=== PATIENT | male | born 1945 | race Caucasian/White ===

== ENCOUNTER 2018-12-25 11:19 | Inpatient (IN) | payer OTHER ==
[~2018-12-25] VITALS: Ht 177.8 cm; Wt 89.9 kg
[2018-12-25 13:00] VITALS: BP 130/79
--- NOTE | 2018-12-25 18:07 | NUR ---
PT A DIRECT ADMIT FROM DR. ESPINAL'S OFFICE. ADMISSION HX AND ASSESSMENT COMPLETED. PT ALERT AND ORIENTED. VSS. AFIB ON THE MONITOR. ON AMIODARON DRIP. SEEN BY DR. ESPINAL. ORDERS NOTED. PLAN IS TO HAVE ELECTRICAL CARDIOVERSION IN THE MORNING. NO CARDIAC DISTRESS NOTED. WILL CONTINUE TO MONITOR.
[2018-12-25] MEDS ORDERED: LOVASTATIN 20 M20 MG PO (18:27)
[2018-12-25] MEDS ORDERED: LOPRESSOR50 PO (18:28)
[2018-12-25] MEDS ORDERED: CENTRUM SILVER1 EAC4 PO (18:29)
[2018-12-25] MEDS ORDERED: ELIQUIS5 MG PO (18:29)
[2018-12-25 19:58] VITALS: BP 131/81
[2018-12-26 00:55] VITALS: BP 131/71
--- NOTE | 2018-12-26 03:21 | NUR ---
PT ALERT AND ORIENTED. DENIES CHEST PAIN SOA, NAUSEA OR VOMITING. PT ON AMIODARONE DRIP AT 16.7ML/HR. AD SUREKHA WITH AMBULATION. VITAL SIGNS STABLE. PT WAS AFIB ON MONITOR BUT CONVERTED TO SR/SA AT ABOUT 0030. ALL OTHER ASSESSMENTS DOCUMENTED. NO OTHER COMPLAINS AT THIS TIME. WILL CONTINUE TO FOLLOW PLAN OF CARE.
[2018-12-26 04:01] LABS: CREATININE 1.2 mg/dL (0.7-1.3); POTASSIUM 4.2 mmol/L (3.5-5.1)
[2018-12-26 04:34] LABS: HEMATOCRIT 47.8 % (42.0-52.0); HEMOGLOBIN 16.1 gm/dL (14.0-18.0); MCH 29.8 pg (26.0-34.0); MCHC 33.6 g/dL (28.0-37.0); MCV 88.7 fL (80.0-100.0); RBC 5.38 mil/uL (4.50-6.00); RDW 13.7 % (10.5-14.5); WBC 8.1 thou/uL (4.0-11.0)
[2018-12-26 04:50] VITALS: BP 116/78
[2018-12-26 08:12] VITALS: BP 146/84
[2018-12-26 11:03] VITALS: BP 134/76
[2018-12-26 14:37] VITALS: BP 134/76
--- NOTE | 2018-12-26 15:05 | NUR ---
ASSESSMENT DOCUMENTED. PT ALERT AND ORIENTED. VSS. DENIED HAVING PAIN OR DISCOMFORT. HAD CARDIOVERSION MID MORNING. SR ON TELI. NO CARDIAC DISTRESS NOTED. ORDERS GIVEN TO DISCHARGE PT TO HOME. DISCHARGE INSTRUCTIONS GIVEN TO PT. PT VERBERLIZE UNDERSTANDING. PT LEFT THE FACILITY ACOMPANIED BY THE .
--- NOTE | 2018-12-27 07:47 | EKG ---
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1945 Requested By: Fiona Sorto Order Number: [id number] MD: Ruddy Ramirez Measurements Intervals [place] Rate: 117 P: ME: QRS: 49 QRSD: 89 T: 31 QT: 357 QTc: 498 Interpretive Statements Atrial fibrillation Low voltage, extremity leads Borderline ST depression, diffuse leads No previous ECG available for comparison Electronically Signed On 12-27-2018 7:47:25 CDT by Ruddy Ramirez [email or web address] ��������������������������������������������� <ELECTRONICALLY SIGNED> ���������������������������������������� By: Ruddy Ramirez MD, [facility] ��������������������������������������������� 12/27/18 0747 6 6 Ruddy Ramirez MD, [facility] /EPI
--- NOTE | 2018-12-31 13:57 | D ---
[facility] [place] [address] DISCHARGE SUMMARY Name: VIVIAN DAWSON Room #: 216-P [facility] IN M.R.#: [id number] Admission: 12/25/18 ������������������ Attend Phys: Dm Blackburn Discharge: 12/26/18 ������������������ Date of : 41 Report #: [id number] THIS REPORT FOR: //name// CC: Dm Christina DATE OF SERVICE: 12/26/2018 ADMITTING DIAGNOSIS: Symptomatic paroxysmal atrial fibrillation. DISCHARGE DIAGNOSES: Paroxysmal atrial fibrillation. PROCEDURE PERFORMED: 1. Electrical cardioversion. 2. Supervision of conscious sedation. DISCHARGE MEDICATIONS: Home meds except for: A. Amiodarone 200 mg p.o. t.i.d. for a week, b.i.d. for a week, then q.a.m. B. No metoprolol. BRIEF CLINICAL HISTORY: See history and physical in chart. HOSPITAL COURSE: The patient was admitted to the hospital and initiated on IV amiodarone protocol. This did not convert the patient and subsequently underwent uncomplicated cardioversion electively with a biphasic 200 joule synchronized shock, which converted him to sinus bradycardia. Post-procedure, he ambulated well without any significant difficulties or abnormalities and is being discharged in stable and improved condition. ��������������������������������������������� <ELECTRONICALLY SIGNED> ���������������������������������������� By: Dm Blackburn MD ��������������������������������������������� 12/31/18 1357 1309 1929 Dm Blackburn MD /syd
== END 2018-12-26 15:02 | disposition home or self-care (01) | DRG 310 ==
LOC: 2N 11:19
PROVIDERS: Nurse Practitioner Gerontology; ADMIT Internal Medicine
PROC: 5A2204Z Restoration of Cardiac Rhythm, Single (ICD-10-PCS; principal; 2018-12-26)
DX: I48.0 Paroxysmal atrial fibrillation (principal); I10 Essential (primary) hypertension; E78.5 Hyperlipidemia, unspecified; Z79.899 Other long term (current) drug therapy
CPT/HCPCS: 10081

== ENCOUNTER 2019-02-09 19:56 | Emergency (ER) | payer OTHER ==
[~2019-02-09] VITALS: Ht 177.8 cm; Wt 90.3 kg
[~2019-02-09 19:56] MED LIST: CENTRUM SILVER1 EAC4 PO; ELIQUIS5 MG PO; LOPRESSOR50 PO; LOVASTATIN 20 M20 MG PO
[2019-02-09] MEDS ORDERED: PACERONE 200 M200 M1 PO (20:13)
[2019-02-09 20:44] LABS: ABSOLUTE NEUTROPHILS 5.8 thou/uL (1.4-8.2); BASOPHILS 0.7 % (0.0-2.0); EOSINOPHILS 4.9 % (0.0-3.0); HEMATOCRIT 45.5 % (42.0-52.0); HEMOGLOBIN 15.4 gm/dL (14.0-18.0); LYMPHOCYTES 17.4 % (24.0-44.0); MCH 30.4 pg (26.0-34.0); MCHC 33.9 g/dL (28.0-37.0); MCV 89.7 fL (80.0-100.0); MONOCYTES 10.3 % (1.0-8.0); PLATELET COUNT 187 thou/uL (150-400); POLYS 66.7 % (36.0-66.0); RBC 5.08 mil/uL (4.50-6.00); RDW 13.7 % (10.5-14.5); WBC 8.7 thou/uL (4.0-11.0)
[2019-02-09 20:57] LABS: CALCIUM 9.2 mg/dL (8.5-10.1); CREATININE 1.3 mg/dL (0.7-1.3); POTASSIUM 4.2 mmol/L (3.5-5.1)
[2019-02-09] MEDS ORDERED: KEFLEX500 M1 PO (21:52)
[2019-02-09] MEDS ORDERED: BACTRIM DS TAB1 EACH PO (21:52)
[2019-02-09 22:03] VITALS: BP 150/71
== END 2019-02-09 22:05 | disposition home or self-care (01) ==
LOC: ER 19:56
PROVIDERS: Emergency Medicine
DX: L03.116 Cellulitis of left lower limb (principal); L03.115 Cellulitis of right lower limb; I48.91 Unspecified atrial fibrillation; E78.5 Hyperlipidemia, unspecified; Z87.891 Personal history of nicotine dependence

== ENCOUNTER → 2020-01-28 | Outpatient (CLI) | payer OTHER ==
[~2020-01-28] MED LIST changes: +BACTRIM DS TAB1 EACH PO; +KEFLEX500 M1 PO; +PACERONE 200 M200 M1 PO
== END ==
LOC: SJCVC 10:29
PROVIDERS: ATTEND Internal Medicine
DX: I48.0 Paroxysmal atrial fibrillation (principal); R00.1 Bradycardia, unspecified; I10 Essential (primary) hypertension; E78.5 Hyperlipidemia, unspecified; K21.9 Gastro-esophageal reflux disease without esophagitis; J44.9 Chronic obstructive pulmonary disease, unspecified; I25.10 Atherosclerotic heart disease of native coronary artery without angina pectoris; Z79.899 Other long term (current) drug therapy; Z87.891 Personal history of nicotine dependence

== ENCOUNTER 2021-01-20 11:37 | Inpatient (IN) | payer OTHER ==
[~2021-01-20] VITALS: Ht 177.8 cm; Wt 90.7 kg
[2021-01-20 11:37] VITALS: BP 143/83
[2021-01-20 12:05] LABS: ABSOLUTE NEUTROPHILS 8.3 thou/uL (1.4-8.2); BASOPHILS 0.5 % (0.0-2.0); EOSINOPHILS 0.1 % (0.0-3.0); HEMATOCRIT 43.5 % (42.0-52.0); HEMOGLOBIN 14.7 gm/dL (14.0-18.0); LYMPHOCYTES 13.1 % (24.0-44.0); MCH 30.2 pg (26.0-34.0); MCHC 33.7 g/dL (28.0-37.0); MCV 89.7 fL (80.0-100.0); MONOCYTES 13.6 % (1.0-8.0); PLATELET COUNT 202 thou/uL (150-400); POLYS 72.7 % (36.0-66.0); RBC 4.85 mil/uL (4.50-6.00); RDW 13.4 % (10.5-14.5); WBC 11.5 thou/uL (4.0-11.0)
[2021-01-20] MEDS ORDERED: metoprolol PO (12:16)
[2021-01-20] MEDS ORDERED: D 3 PO (12:17)
[2021-01-20] MEDS ORDERED: COZAAR 50 MG TA50 M1 PO (12:17)
[2021-01-20] MEDS ORDERED: MELATONIN PO (12:18)
[2021-01-20] MEDS ORDERED: CHONDROITIN PO (12:19)
[2021-01-20] MEDS ORDERED: GLUCOSAMINE PO (12:19)
[2021-01-20 12:23] LABS: ANION GAP 12 mmol/L (7-16); BUN 22 mg/dL (7-18); CALCIUM 9.2 mg/dL (8.5-10.1); CHLORIDE 102 mmol/L (98-107); CO2 25 mmol/L (21-32); CREATININE 1.3 mg/dL (0.7-1.3); GLUCOSE 110 mg/dL (74-106); POTASSIUM 3.7 mmol/L (3.5-5.1); SODIUM 139 mmol/L (136-145)
[2021-01-20 12:23] LABS: BE(vivo) 0.3 mmol/L (-2 to +3); HCO3 25.2 mmol/L (22.0-26.0); PCO2 41.7 mmHg (35.0-45.0); PO2 64.5 mmHg (80.0-100.0); pH 7.399 (7.360-7.450); sO2 92.6 % (92.0-98.0)
[2021-01-20 12:34] LABS: ALBUMIN 2.9 g/dL (3.4-5.0); SGOT 20 U/L (15-37); SGPT 22 U/L (16-63); TOTAL BILIRUBIN 0.7 mg/dL (0.2-1.0); TOTAL PROTEIN 7.6 g/dL (6.4-8.2); TROPONIN-I <0.06 ng/mL (<0.06)
--- NOTE | 2021-01-20 12:37 | NUR ---
emergency contact: mode chriss--[phone]
--- NOTE | 2021-01-20 13:03 | EKG ---
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1945 Requested By: Davide Tan Order Number: [id number] MD: Blake Tafoya Measurements Intervals [place] Rate: 73 P: 30 CA: 157 QRS: 44 QRSD: 104 T: 30 QT: 388 QTc: 428 Interpretive Statements Sinus rhythm Atrial premature complexes Low voltage, extremity leads Compared to ECG 12/26/2018 07:17:57 Atrial premature complex(es) now present Atrial fibrillation no longer present ST (T wave) deviation no longer present Electronically Signed On 01-20-2021 13:03:02 CDT by Blake Tafoya [email or web address] <ELECTRONICALLY SIGNED> By: Blake Tafoya MD, [facility] 01/20/21 1303 1222 1222 Blake Tafoya MD, FAC /EPI
[2021-01-20 15:27] VITALS: BP 153/73
[2021-01-20 15:40] VITALS: BP 123/53
[2021-01-20 16:15] VITALS: BP 167/94
--- NOTE | 2021-01-20 19:02 | NUR ---
PT ARRIVED TO UNIT AFTER 1600 FROM ED. PT IS A&OX4 WITH FALL PRECAUTIONS IN PLACE. PT HAS COARSE/DIMINISHED LUNG SOUNDS. VISITED BRIEFLY. URINAL BY BEDSIDE, PT ENCOURAGED TO CALL NURSING BEFORE TRYING TO AMBULATE. WAS REPORTED FROM ED PT DESATS WITH AMBULATION. PT WANTS TO BE DC'D [place] TO HOME. PT IS OPEN TO HOME HEALTH POST DC FROM HOSPITAL.
[2021-01-21 04:10] VITALS: BP 118/54
[2021-01-21 06:08] LABS: ABSOLUTE NEUTROPHILS 8.9 thou/uL (1.4-8.2); BASOPHILS 0.1 % (0.0-2.0); HEMATOCRIT 41.6 % (42.0-52.0); HEMOGLOBIN 13.8 gm/dL (14.0-18.0); LYMPHOCYTES 7.9 % (24.0-44.0); MCH 30.3 pg (26.0-34.0); MCHC 33.3 g/dL (28.0-37.0); MONOCYTES 5.2 % (1.0-8.0); PLATELET COUNT 209 thou/uL (150-400); POLYS 86.8 % (36.0-66.0); RBC 4.57 mil/uL (4.50-6.00); RDW 13.8 % (10.5-14.5); WBC 10.3 thou/uL (4.0-11.0)
[2021-01-21 06:28] LABS: CREATININE 1.2 mg/dL (0.7-1.3); MAGNESIUM 2.2 mg/dL (1.8-2.4); POTASSIUM 3.9 mmol/L (3.5-5.1)
--- NOTE | 2021-01-21 06:44 | NUR ---
VSS OVERNIGHT. PT UP WITH SBA. PT HAS GOOD COUGH AFTER BREATHING TX. FOLLOWING POC WITH 02 AND BREATHING TX.
[2021-01-21 08:04] VITALS: BP 147/70
[2021-01-21 12:19] VITALS: BP 137/61
[2021-01-21 14:30] LABS: URINE BILIRUBIN NEGATIVE (Negative); URINE BLOOD TRACE (Negative); URINE CLARITY CLEAR; URINE COLOR YELLOW; URINE GLUCOSE-RANDOM* NEGATIVE (Negative); URINE KETONES NEGATIVE (Negative); URINE LEUKOCYTES-REFLEX NEGATIVE (Negative); URINE NITRITE-REFLEX NEGATIVE (Negative); URINE PROTEIN (DIPSTICK) 1+ (Negative); URINE SPECIFIC GRAVITY 1.025 (1.005-1.035); URINE UROBILINOGEN 0.2 E.U./dl (0.2-1.0)
[2021-01-21 14:42] LABS: AMORPHOUS URATES Few /LPF (None Seen); BACTERIA-REFLEX 1-9 Few /HPF (None Seen); HYALINE CASTS 0-3 Few /LPF (None Seen); SQUAMOUS None Seen /LPF (0-3); URINE RBC 1-2 Rare /HPF (NONE SEEN); URINE WBC-REFLEX 0-5 Rare /HPF (0-5)
--- NOTE | 2021-01-21 15:02 | NUR ---
INITIAL ASSESSMENT: Received consult. KONG reviewed chart and spoke with nursing and attending physician. Pt was admitted from home due to pneumonia. Pt is currently on 4L of O2. Pt is on IV abx and IV steroids. KONG met with pt and at bedside. Introduced role of SW. Pt is alert/orientated x 4. Pt and live at home in [place], [place]. 3 steps to enter their home. No steps inside. Prior to admission, pt was independent with ADLs. No use of DME. No hx of services or post-acute placement. Pt's PCP is Dr. Christina. KONG discussed possible need for home O2 upon discharge. Pt and verbalized understanding and are hopeful that pt will not need it. Rest/exercise oximetry completed this afternoon. Pt requiring 4L continuously at rest and with activity. KONG confirmed pt's home address and phone number. Pt agreeable with referral for home O2. Options provided. No preference voiced. KONG faxed face sheet and clinical info to [facility] for review. Notified [facility] liaison. Will have repeat rest/exercise completed prior to discharge. Discharge home is anticipated in 1-2 days. KONG is following to assist as needed with discharge planning.
[2021-01-21 15:22] VITALS: BP 107/69
--- NOTE | 2021-01-21 19:29 | NUR ---
RN ASSUMED PT'S CARE AT 0700AM, PT IS A&OX4, PT IS ON O2 4L/MIN/NC, PT IS CONTINUING O2 4 L/MIN/NC, PT 'S VS AND O2SAT ARE STABLE, PT DENIES SOB WITH ACTIVITIES AT DAY SHIFT.
[2021-01-21 20:00] VITALS: BP 136/67
[2021-01-22 04:02] VITALS: BP 129/72
[2021-01-22 05:23] LABS: HEMATOCRIT 39.8 % (42.0-52.0); HEMOGLOBIN 13.3 gm/dL (14.0-18.0); MCH 30.1 pg (26.0-34.0); MCHC 33.4 g/dL (28.0-37.0); MCV 90.2 fL (80.0-100.0); RBC 4.42 mil/uL (4.50-6.00); RDW 13.4 % (10.5-14.5); WBC 12.8 thou/uL (4.0-11.0)
[2021-01-22 05:41] LABS: CALCIUM 8.6 mg/dL (8.5-10.1); CREATININE 1.3 mg/dL (0.7-1.3); MAGNESIUM 2.3 mg/dL (1.8-2.4); POTASSIUM 3.9 mmol/L (3.5-5.1)
--- NOTE | 2021-01-22 06:46 | NUR ---
CRITICAL CALLED FROM LAB WITH POSITIVE BLOOD CULTURE. GRAM + COCCI. CALLED APPROPRIATE PARTIES. FOLLOWING POC AND PROGRESSING TO DC GOALS.
[2021-01-22 07:13] VITALS: BP 131/74
[2021-01-22 11:11] VITALS: BP 131/71
--- NOTE | 2021-01-22 13:53 | NUR ---
INITIAL ASSESSMENT: KONG reviewed chart and spoke with nursing and attending physician. Pt with positive blood cultures. Pt is on IV abx and IV steroids. Pt remains on 4L of O2. Possible weekend discharge. KONG met with pt at bedside to discuss discharge plan. [facility] delivered portable O2 tank if pt discharges home over the weekend. Pt will need a repeat rest/exercise oximetry completed prior to discharge to determine home O2 needs. Pt is aware and agreeable with discharge plan. Rest/exercise oximetry test and script will need to be faxed to [facility]. Anamika to be notified of pt's discharge. Contact info for Anamika placed in pt's discharge summary. Pt's family will provide transportation home. KONG is available to assist as needed. ANAMIKA--
[2021-01-22 13:56] VITALS: BP 131/71
[2021-01-22 15:24] VITALS: BP 129/72
[2021-01-22 19:41] VITALS: BP 128/61
--- NOTE | 2021-01-23 02:41 | NUR ---
PT ALERT AND ORIENTED X4 VSS AFEBRILE. UNLABORED ON 4LNC. BS DIMINSHED. NO C/O PAIN.NO S/S DISTRESS. BED DOWN. CALL LIGHT IN REACH. BED ALARM ON. MIRALAX AND STOOL SOFTENER GIVEN FOR CONSTPATION.
[2021-01-23 03:50] VITALS: BP 136/72
[2021-01-23 05:20] LABS: HEMATOCRIT 38.8 % (42.0-52.0); HEMOGLOBIN 12.8 gm/dL (14.0-18.0); MCH 29.6 pg (26.0-34.0); MCV 89.6 fL (80.0-100.0); PLATELET COUNT 253 thou/uL (150-400); RBC 4.33 mil/uL (4.50-6.00); RDW 13.4 % (10.5-14.5); WBC 16.5 thou/uL (4.0-11.0)
[2021-01-23 05:31] LABS: CALCIUM 8.8 mg/dL (8.5-10.1); CREATININE 1.3 mg/dL (0.7-1.3); MAGNESIUM 2.4 mg/dL (1.8-2.4); POTASSIUM 3.7 mmol/L (3.5-5.1)
[2021-01-23 06:25] LABS: ABSOLUTE NEUTROPHILS 13.7 thou/uL (1.4-8.2); METAMYELOCYTES 2 %; NUCLEATED RBCS 1 /100WBC
[2021-01-23 07:38] VITALS: BP 142/82
[2021-01-23 11:32] VITALS: BP 122/72
--- NOTE | 2021-01-23 13:43 | NUR ---
ASSUMED PT CARE AT SHIFT CHANGE, PT A&OX4, AMBULATE INDEPENDENTLY. PT HAS PRODUCTIVE COUGH, CONTINUES OXYGEN VIA NC. PT HAS OXYGEN CANISTER IN ROOM FOR HOME USE. PT HAS NO CONCERNS AT THIS TIME AND STATED HE IS OK WITH STAYING UNTIL INFECTION IS UNDER CONTROL ENOUGH FOR PO ABX.
[2021-01-23 15:18] VITALS: BP 122/62
[2021-01-23 19:36] VITALS: BP 144/77
--- NOTE | 2021-01-23 21:11 | NUR ---
PT ALERT AND ORIENED X4. VSS AFEBRILE. RT TX GIVEN PER RT. LUNGS SOUND LESS DIMINISHED TONIGHT. UNLABORED ON 4LNC. NO C/O PAIN. NO S/S DISRESS. PT RESTING QUIETLY NO S/S DISTRESS.
[2021-01-24 03:46] VITALS: BP 148/83
--- NOTE | 2021-01-24 04:57 | NUR ---
PT HAS HAD A QUIETLY NIGHT. UNLABORED ON 4LNC. NO C/O PAIN. NO S/S DISTRESS.
[2021-01-24 05:51] LABS: HEMATOCRIT 38.9 % (42.0-52.0); HEMOGLOBIN 13.2 gm/dL (14.0-18.0); MCH 30.1 pg (26.0-34.0); MCHC 33.9 g/dL (28.0-37.0); MCV 88.8 fL (80.0-100.0); PLATELET COUNT 280 thou/uL (150-400); RBC 4.38 mil/uL (4.50-6.00); RDW 13.6 % (10.5-14.5); WBC 18.2 thou/uL (4.0-11.0)
[2021-01-24 07:08] VITALS: BP 152/85
[2021-01-24 07:16] LABS: ABSOLUTE NEUTROPHILS 14.9 thou/uL (1.4-8.2); METAMYELOCYTES 4 %; MYELOCYTES 3 %
[2021-01-24 07:17] LABS: ANISOCYTOSIS SLIGHT
[2021-01-24 11:26] VITALS: BP 152/79
--- NOTE | 2021-01-24 12:46 | NUR ---
THIS RN TITRATED PT TO 3L FOR TOLERANCE, PT SATS 95%.
[2021-01-24 15:21] VITALS: BP 142/73
[2021-01-24 19:50] VITALS: BP 148/68
--- NOTE | 2021-01-25 00:15 | NUR ---
PT IS ALERT AND ORIENTED X4. VSS AFEBRILE. UNLABORED ON 3LNC. LUNGS SOUND DIMINISHED. RESP TX PER RT. DENIED PAIN. NO C/O. PT HAPPT TO BE GOING HOME TOMORROW. BED DOWN CALL LIGHT IN REACH. BED ALARM IS ON.
[2021-01-25 04:15] VITALS: BP 136/73
[2021-01-25 05:11] LABS: ABSOLUTE NEUTROPHILS 19.4 thou/uL (1.4-8.2); BASOPHILS 0.3 % (0.0-2.0); HEMOGLOBIN 13.3 gm/dL (14.0-18.0); LYMPHOCYTES 5.6 % (24.0-44.0); MCH 29.8 pg (26.0-34.0); MCHC 33.2 g/dL (28.0-37.0); MCV 89.9 fL (80.0-100.0); MONOCYTES 4.7 % (1.0-8.0); PLATELET COUNT 303 thou/uL (150-400); POLYS 89.4 % (36.0-66.0); RBC 4.45 mil/uL (4.50-6.00); RDW 13.8 % (10.5-14.5); WBC 21.7 thou/uL (4.0-11.0)
--- NOTE | 2021-01-25 05:41 | NUR ---
PT PROGRESSING TOWARDS D/C GOALS. VSS. UNLABORED ON 3LNC. PT UP INDEPENDENTLY TO THE BR. DENIED DISCOMFORT OR SOA.
[2021-01-25 07:15] VITALS: BP 153/85
[2021-01-25 08:57] LABS: BE(vivo) -1.7 mmol/L (-2 to +3); HCO3 21.9 mmol/L (22.0-26.0); PCO2 34.1 mmHg (35.0-45.0); PO2 69.3 mmHg (80.0-100.0); pH 7.426 (7.360-7.450); sO2 94.5 % (92.0-98.0)
[2021-01-25 11:24] VITALS: BP 141/81
[2021-01-25] MEDS ORDERED: PREDNISONE 20 M20 M1 PO (14:44)
[2021-01-25] MEDS ORDERED: LEVOFLOXACIN500 MG PO (14:44)
[2021-01-25] MEDS ORDERED: MUCINEX600 MG PO (14:44)
[2021-01-25] MEDS ORDERED: MELATONIN5 M1 PO (14:44)
[2021-01-25] MEDS ORDERED: PULMICORT0.5 MG/21 INH (14:44)
[2021-01-25] MEDS ORDERED: ALBUTEROL2.5 MG/0.5 INH (14:44)
[2021-01-25 14:57] VITALS: BP 131/71
--- NOTE | 2021-01-25 15:12 | NUR ---
DISCHARGE NOTE: KONG reviewed chart and spoke with nursing and attending physician. Pt is medically stable for discharge home today with HH services and home O2. KONG met with pt and at bedside to discuss discharge plan. Options for HH providers discussed. No preference voiced. KONG confirmed pt's home address and phone number. KONG faxed rest/exercise oximetry test and script for O2 to [facility]. Notified liaison, who confirmed info received. Portable O2 in pt's room. KONG faxed HH referral to [facility], who is unable to accept pt due to insurance. [facility] does not go to [place], [place]. KONG faxed HH referral to [facility]. Confirmed info was received and pt accepted on services. KONG faxed discharge ppwk to [place]. Contact info for HH and [facility] placed in pt's discharge summary. Pt's to provide transportation home. KONG left voice message for Dr. Christina's office for hospital follow up appt. Pt's called and first available appt was 02/16. Awaiting call back from Dr. Christina's office. KONG to notify pt's of appt time. No additional SW needs identified at this time, but is available to assist should needs arise.
--- NOTE | 2021-01-25 15:56 | NUR ---
assumed care of pt at 0700. pt aox4 in no acute distress. voicing no concerns. to go home with o2 tank on 4L NC. instructed how to use while at bedisde. pt demonstrate understanding and agreeable going home. pt progressed toward poc goals.
--- NOTE | 2021-01-26 15:48 | NUR ---
SW received call from pt's stating the pt had an order for a nebulizer and that was not ordered through [facility]. SW was unaware of order for nebulizer. Script obtained and faxed to [facility]. SW notified [facility] liaison who states they will deliver a nebulizer today. SW spoke with pt's via phone to provide update. Pt's verbalized understanding. No additional SW needs identified at this time but is available to assist should needs arise.
== END 2021-01-25 15:58 | disposition home health service (06) | DRG 871 ==
LOC: ER 11:37 → EROBS 15:20 → 3W 15:20
PROVIDERS: Nurse Practitioner; Physician Assistant; ADMIT Internal Medicine; ATTEND Internal Medicine
PROC: 5A0935A Assistance with Respiratory Ventilation, Less than 24 Consecutive Hours, High Flow/Velocity Cannula (ICD-10-PCS; principal; 2021-01-21)
PROC: 5A0935A Assistance with Respiratory Ventilation, Less than 24 Consecutive Hours, High Flow/Velocity Cannula (ICD-10-PCS; 2021-01-22)
PROC: 5A0935A Assistance with Respiratory Ventilation, Less than 24 Consecutive Hours, High Flow/Velocity Cannula (ICD-10-PCS; 2021-01-24)
DX: A41.9 Sepsis, unspecified organism (principal); J18.9 Pneumonia, unspecified organism; J96.01 Acute respiratory failure with hypoxia; J44.1 Chronic obstructive pulmonary disease with (acute) exacerbation; E44.0 Moderate protein-calorie malnutrition; J44.0 Chronic obstructive pulmonary disease with (acute) lower respiratory infection; I48.20 Chronic atrial fibrillation, unspecified; I10 Essential (primary) hypertension; E66.01 Morbid (severe) obesity due to excess calories; E78.5 Hyperlipidemia, unspecified; Z66 Do not resuscitate; Z20.822 Contact with and (suspected) exposure to COVID-19; Z79.899 Other long term (current) drug therapy; Z79.01 Long term (current) use of anticoagulants; Z87.891 Personal history of nicotine dependence; Z68.28 Body mass index [BMI] 28.0-28.9, adult
CPT/HCPCS: 10879

== ENCOUNTER → 2021-02-05 | Outpatient (CLI) | payer OTHER ==
[~2021-02-05] MED LIST changes: +ALBUTEROL2.5 MG/0.5 INH; +CHONDROITIN PO; +COZAAR 50 MG TA50 M1 PO; +D 3 PO; +GLUCOSAMINE PO; +LEVOFLOXACIN500 MG PO; +MELATONIN PO; +MELATONIN5 M1 PO; +MUCINEX600 MG PO; +PREDNISONE 20 M20 M1 PO; +PULMICORT0.5 MG/21 INH; +metoprolol PO
== END ==
LOC: SJCVCIMAG 09:33
PROVIDERS: ATTEND Internal Medicine
DX: I51.7 Cardiomegaly (principal); I48.91 Unspecified atrial fibrillation

== ENCOUNTER → 2021-02-15 | Outpatient (CLI) | payer OTHER | LOC: RAD 11:36 | PROVIDERS: ATTEND Pediatrics | DX: J98.11 Atelectasis (principal) ==

== ENCOUNTER → 2021-08-23 | Outpatient (CLI) | payer OTHER | LOC: SJCVC 09:05 | PROVIDERS: ATTEND Internal Medicine | DX: I48.0 Paroxysmal atrial fibrillation (principal); I10 Essential (primary) hypertension; E78.5 Hyperlipidemia, unspecified; D68.59 Other primary thrombophilia; I48.91 Unspecified atrial fibrillation; I25.10 Atherosclerotic heart disease of native coronary artery without angina pectoris; J44.9 Chronic obstructive pulmonary disease, unspecified; K21.9 Gastro-esophageal reflux disease without esophagitis; Z87.891 Personal history of nicotine dependence; Z79.899 Other long term (current) drug therapy; Z88.8 Allergy status to other drugs, medicaments and biological substances ==